=== PATIENT | female | born 1985 | race African-American/Black ===

== ENCOUNTER 2022-09-01 12:14 | Emergency (ER) | payer OTHER ==
[~2022-09-01] VITALS: Ht 167.6 cm; Wt 65.9 kg
[2022-09-01 12:16] VITALS: BP 157/94
[2022-09-01] MEDS ORDERED: HYDROCODONE/ACETAMINOPHEN 5-325 MG TABLET PO ONE (12:45)
[2022-09-01] MEDS ORDERED: IBUP-1554 PO (14:03)
== END 2022-09-01 14:23 | disposition home or self-care (01) ==
LOC: EMS 12:43
DX: M79.605 Pain in left leg (principal); M54.59 Other low back pain
CPT/HCPCS: 99284; 73562-TC; 73590-TC; Z7502; Z7610